=== PATIENT | female | born 1985 | race Caucasian/White ===

== ENCOUNTER 2016-10-28 12:15 | Emergency (ER) | payer SELFPAY ==
[~2016-10-28] VITALS: Ht 154.9 cm; Wt 50.0 kg
[2016-10-28 12:16] VITALS: BP 114/81; PULSE 110; RESP 18; TEMP 97.5; O2SAT 98
[2016-10-28] MEDS ORDERED: DOXY100C PO (13:52)
--- NOTE | 2016-10-28 13:52 | PD ---
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 She states that about 2 or 3 months ago she had an ultrasound that was done after she missed her period was having abdominal pain that was reportedly negative. She developed these worsening symptoms or past couple days. She's also been lightheaded with some body aches. She's had some chills. She sexually active with both male and female partners with 5 partners over the past 6 months. She states she is worried she may have contracted an STD. History Past Medical History Medical History: Denies Significant Hx Tetanus Vaccination: < 5 Years Social History Alcohol Use: No Tobacco Use: Yes (1 PPD) Allergies-Medications (Allergen,Severity, Reaction): Coded Allergies: No Known Allergies (Verified , 07/07/15) Reported Meds & Prescriptions Reported Meds & Active Scripts Active No Active Prescriptions or Reported Medications Review of Systems Except as stated in HPI: all other systems reviewed are Neg Physical Exam Narrative GENERAL: Well-appearing 31 year-old woman, no acute distress. SKIN: Focused skin assessment warm/dry. HEAD: Atraumatic. Normocephalic. CARDIOVASCULAR: Regular rate and rhythm. No murmur appreciated. RESPIRATORY: No accessory muscle use. Clear to auscultation. Breath sounds equal bilaterally. GASTROINTESTINAL: Abdomen soft, non-tender, nondistended. Hepatic and splenic margins not palpable. MUSCULOSKELETAL: No obvious deformities. No clubbing. No cyanosis. No edema. NEUROLOGICAL: Awake and alert. No obvious cranial nerve deficits. Motor grossly within normal limits. Normal speech. PSYCHIATRIC: Appropriate mood and affect; insight and judgment normal. Has pelvic: Scant thin white vaginal discharge. No obvious cervicitis. Diffuse pelvic tenderness with positive cervical motion tenderness. Data Data Last Documented VS Vital Signs Date Time Temp Pulse Resp B/P Pulse Ox O2 Delivery O2 Flow Rate FiO2 10/28/16 12:16 97.5 110 18 114/81 98 Room Air Orders Gc And Chlamydia Pcr (10/28/16 13:14) Wet Prep Profile (10/28/16 13:14) Urinalysis - C+S If Indicated (10/28/16 13:14) Ed Urine Pregnancytest Poc (10/28/16 13:14) [place] Medical Decision Making Medical Screen Exam Complete: Yes Emergency Medical Condition: Yes Differential Diagnosis Cervicitis, vaginitis, UTI, other Narrative Course Medical decision making 31 year-old woman with pelvic pain vaginal discharge chills and recent permits for sexual activity. Suspect PID. Plan empiric treatment. Diagnosis Primary Impression: PID (acute pelvic inflammatory disease) Additional Instructions: Take doxycycline as prescribed. Avoid the sun while taking doxycycline. Followup with your first assistant for routine GOVERNMENT RELATIONS ANALYST care and followup testing for other sexually transmitted infection such as HIV, hepatitis, syphilis. Any sexual partners you have should be tested and treated as well. You should not have sex until you have no symptoms, and your partners tested and treated as well. Med/Other Pt SpecificInfo: Prescription(s) given Scripts Doxycycline Hyclate 100 Mg [id number] Mg PO BID #28 CAP Ref 0 Prov:Mau Patel MD 10/28/16 Disposition: 01 DISCHARGE HOME Condition: Stable Mau Patel MD Oct 28, 2016 13:52
[2016-10-28 13:54] LABS: BACTERIA, URINE MOD /hpf; BLOOD, URINE NEG (NEG); CALCIUM OXALATE CRYSTALS,URINE FEW /hpf; GLUCOSE,URINE NEG (NEG); KETONE, URINE NEG (NEG); MUCUS URINE MOD /lpf (OCC); NITRITE,URINE NEG (NEG); SQUAMOUS EPITHELIAL CELL URINE 7 /hpf (0-5); TRANSITIONAL EPI CELLS, URINE <1 /hpf; URINE COLOR YELLOW (YELLW/STRAW)
[2016-10-28 13:56] LABS: COMMENT (UR) CULTURE INDICATED; CULTURE IF INDICATED CULTURE INDICATED
[2016-10-28] MEDS ORDERED: ONDANSETRON ODT 4 MG TAB PO ONE (14:00)
[2016-10-28] MEDS ORDERED: AZITHROMYCIN PWD FOR SUSP 1 GM PACKET PO ONE (14:00)
[2016-10-28] MEDS ORDERED: metroNIDAZOLE 500 MG TAB PO ONE (14:00)
[2016-10-28] MEDS ORDERED: LIDOCAINE HCL 1% 50 ML VIAL IM ONE (14:00)
[2016-10-28] MEDS ORDERED: cefTRIAXone 250 MG VIAL IM ONE (14:00)
[2016-10-28 16:01] LABS: CHLAMYDIA PCR DETECTED (NOT DETECT); NEISSERIA PCR NOT DETECTED (NOT DETECT)
== END 2016-10-28 14:35 | disposition home or self-care (01) ==
LOC: NEPD 12:15
DX: N73.9 Female pelvic inflammatory disease, unspecified (principal); N92.6 Irregular menstruation, unspecified; R42 Dizziness and giddiness; R68.83 Chills (without fever); R52 Pain, unspecified; F17.200 Nicotine dependence, unspecified, uncomplicated
CPT/HCPCS: 81001; 84703; 87077; 87086; 87186; 87210; 87491; 87591; 96372; 99284; J0696

== ENCOUNTER 2017-02-19 21:00 | Emergency (ER) | payer SELFPAY ==
[~2017-02-19] VITALS: Ht 154.9 cm; Wt 55.0 kg
[~2017-02-19 21:00] MED LIST: DOXY100C PO
[2017-02-19 21:03] VITALS: BP 145/85; PULSE 78; RESP 16; TEMP 97.9; O2SAT 98
[2017-02-19] MEDS ORDERED: SODIUM CHLOR 0.9% 1000 ML INJ 1,000 ML IV SCH (21:19)
--- NOTE | 2017-02-19 21:23 | PD ---
HPI Chief Complaint: Abdominal Pain Time Seen by Provider: 21:19 Travel History International Travel<30 days: No Contact w/Intl Traveler<30days: No Traveled to known affect area: No History of Present Illness HPI 31-year-old female presents to the emergency department by private transportation the care of friend for evaluation of one day of epigastric pain. Patient states symptoms began after drinking alcohol. Patient also reports 3 episodes of mucoid diarrhea. No prior history of inflammatory bowel disease or irritable bowel syndrome. Patient denies nausea or vomiting. Patient denies fever chills. No respiratory illness symptoms no sore throat no earache no cough no congestion no chest pain. Patient also denies any urinary symptoms no dysuria frequency urgency hematuria or flank pain. Last menstrual period was 2 weeks ago normal for her no vaginal discharge or vaginal bleeding. Patient reports pain is 6/10 in intensity. Patient denies dietary indiscretion well water ingestion or foreign travel. PFSH Past Medical History Narrative Medical tobacco use alcohol use: Nursing notes reviewed Diminished Hearing: No Immunizations Current: No ?: Not LMP: 01/19/17 Tubal Ligation: Yes Past Surgical History Section: Yes (X 2) Social History Alcohol Use: Yes (OCC) Tobacco Use: Yes (1 PPD) Substance Use: No Allergies-Medications (Allergen,Severity, Reaction): Coded Allergies: levofloxacin (Verified Allergy, Unknown, 02/19/17) TENDON PAIN Reported Meds & Prescriptions Reported Meds & Active Scripts Active Zofran Odt (Ondansetron Odt) 4 Mg Tab 4 Mg SL Q6HR PRN Macrobid (Nitrofurantoin Monoh/Nitrofur Macro) 100 Mg Cap 100 Mg PO BID 7 Days Review of Systems Except as stated in HPI: all other systems reviewed are Neg Physical Exam Narrative GENERAL: Well-developed well-nourished female in acute distress no respiratory distress SKIN: Warm and dry. HEAD: Normocephalic. EYES: No scleral icterus. No injection or drainage. NECK: Supple, trachea midline. No JVD or lymphadenopathy. CARDIOVASCULAR: Regular rate and rhythm without murmurs, gallops, or rubs. RESPIRATORY: Breath sounds equal bilaterally. No accessory muscle use. GASTROINTESTINAL: Abdomen soft, diffusely tender primarily epigastric periumbilical location without guarding or rebound, nondistended. MUSCULOSKELETAL: No cyanosis, or edema. BACK: Nontender without obvious deformity. No CVA tenderness. Data Data Last Documented VS Vital Signs Date Time Temp Pulse Resp B/P (MAP) Pulse Ox O2 Delivery O2 Flow Rate FiO2 02/20/17 01:20 02/19/17 21:03 97.9 78 16 98 Room Air Orders Orders Complete Blood Count With Diff (02/19/17 21:19) Comprehensive Metabolic Panel (02/19/17 21:19) Lipase (02/19/17 21:19) Urinalysis - C+S If Indicated (02/19/17 21:19) Iv Access Insert/Monitor (02/19/17 21:19) Ondansetron Inj (Zofran Inj) (02/19/17 21:30) Sodium Chlor 0.9% 1000 Ml Inj (Ns 1000 M (02/19/17 21:19) Ed Urine Pregnancytest Poc (02/19/17 21:19) Alcohol (Ethanol) (02/19/17 21:19) Drug Screen, Random Urine (02/19/17 21:19) Urine Culture (02/19/17 23:24) Nitrofurantoin Monohyd Macrocr (Macrobid (02/20/17 01:00) Ed Discharge Order (02/20/17 01:04) Labs Laboratory Tests Test 02/19/17 21:40 02/19/17 23:24 White Blood Count 7.0 TH/MM3 Red Blood Count 4.60 MIL/MM3 Hemoglobin 14.9 GM/DL Hematocrit 43.2 % Mean Corpuscular Volume 93.9 FL Mean Corpuscular Hemoglobin 32.4 PG Mean Corpuscular Hemoglobin Concent 34.5 % Red Cell Distribution Width 12.5 % Platelet Count 271 TH/MM3 Mean Platelet Volume 8.3 FL Neutrophils (%) (Auto) 60.7 % Lymphocytes (%) (Auto) 26.9 % Monocytes (%) (Auto) 10.8 % Eosinophils (%) (Auto) 1.2 % Basophils (%) (Auto) 0.4 % Neutrophils # (Auto) 4.2 TH/MM3 Lymphocytes # (Auto) 1.9 TH/MM3 Monocytes # (Auto) 0.8 TH/MM3 Eosinophils # (Auto) 0.1 TH/MM3 Basophils # (Auto) 0.0 TH/MM3 CBC Comment DIFF FINAL Differential Comment Blood Urea Nitrogen 14 MG/DL Creatinine 0.67 MG/DL Random Glucose 83 MG/DL Total Protein 7.3 GM/DL Albumin 3.6 GM/DL Calcium Level 8.8 MG/DL Alkaline Phosphatase 86 U/L Aspartate Amino Transf (AST/SGOT) 16 U/L Alanine Aminotransferase (ALT/SGPT) 20 U/L Total Bilirubin 0.8 MG/DL Sodium Level 141 MEQ/L Potassium Level 3.7 MEQ/L Chloride Level 107 MEQ/L Carbon Dioxide Level 27.7 MEQ/L Anion Gap 6 MEQ/L Estimat Glomerular Filtration Rate 104 ML/MIN Lipase 103 U/L Ethyl Alcohol Level LESS THAN 3 MG/DL Urine Color YELLOW Urine Turbidity CLEAR Urine pH 6.0 Urine Specific [place] 1.019 Urine Protein NEG mg/dL Urine Glucose (UA) NEG mg/dL Urine Ketones NEG mg/dL Urine Occult Blood NEG Urine Nitrite NEG Urine Bilirubin NEG Urine Urobilinogen LESS THAN 2.0 MG/DL Urine Leukocyte Esterase MOD Urine RBC 1 /hpf Urine WBC 11 /hpf Urine Squamous Epithelial Cells 2 /hpf Urine Bacteria FEW /hpf Microscopic Urinalysis Comment CULTURE INDICATED Urine Opiates Screen NEG Urine Barbiturates Screen NEG Urine Amphetamines Screen NEG Urine Benzodiazepines Screen NEG Urine Cocaine Screen NEG Urine Cannabinoids Screen NEG MDM Medical Decision Making Medical Screen Exam Complete: Yes Emergency Medical Condition: Yes Medical Record Reviewed: Yes Interpretation(s) CBC & BMP Diagram 02/19/17 21:40 Total Protein 7.3, Albumin 3.6, Calcium Level 8.8, Alkaline Phosphatase 86, Aspartate Amino Transf (AST/SGOT) 16, Alanine Aminotransferase (ALT/SGPT) 20, Total Bilirubin 0.8 Vital Signs Date Time Temp Pulse Resp B/P (MAP) Pulse Ox O2 Delivery O2 Flow Rate FiO2 02/19/17 21:03 97.9 78 16 145/85 (105) 98 Room Air [id number] hCG negative Differential Diagnosis Gastritis pancreatitis gastroenteritis inflammatory bowel disease UTI Narrative Course IV access obtained specimens collected and sent for resulting patient administered normal saline Advice found to be in normal range patient reports feels clinically and symptomatically improved desirous of being discharged to home Patient is aware that urinalysis is mildly abnormal and given prescription for Macrobid and encouraged to follow-up with primary care provider is informed that she will be notified if organism is not sensitive to her current antibiotic. Patient otherwise notes marked improvement after fluid hydration and is stable for outpatient management Diagnosis Primary Impression: Gastroenteritis Additional Impression: UTI (urinary tract infection) Referrals: Primary Care Physician call for appointment Patient Instructions: General Instructions Additional Instructions: Increase fluid hydration Follow-up with primary care provider Complete course of antibiotic as prescribed for urinary tract infection Takes Zofran as prescribed as needed for gastritis/gastroenteritis No work times one day May take acetaminophen/Tylenol as needed for fever 100.4F or greater or for minor pain May use [id number] Zantac 150 twice daily for 7 days Med/Other Pt SpecificInfo: Prescription(s) given Scripts Ondansetron Odt (Zofran Odt) 4 Mg Tab 4 MG SL Q6HR Y for Nausea/Vomiting, #10 TAB 0 Refills Prov: Heaven Galicia MD 02/20/17 Nitrofurantoin Monohydrate Macrocrystals (Macrobid) 100 Mg Cap 100 MG PO BID for Infection for 7 Days, #14 CAP 0 Refills Prov: Heaven Galicia MD 02/20/17 Disposition: 01 DISCHARGE HOME Condition: Stable Heaven Galicia MD Feb 19, 2017 21:23
[2017-02-19] MEDS ORDERED: ONDANSETRON HCL 4 MG/2 ML VIAL IVP ONE (21:30)
[2017-02-19 22:21] LABS: AUTOMATED NEUTROPHIL # 4.2 TH/MM3 (1.8-7.7); BASOPHIL % 0.4 % (0.0-2.0); EOSINOPHIL # 0.1 TH/MM3 (0-0.4); EOSINOPHIL % 1.2 % (0.0-4.0); HEMATOCRIT 43.2 % (35.0-46.0); HEMOGLOBIN 14.9 GM/DL (11.6-15.3); LYMPH % 26.9 % (9.0-44.0); LYMPHOCYTE # 1.9 TH/MM3 (1.0-4.8); MEAN CELL VOLUME 93.9 FL (80.0-100.0); MEAN CORPUSCULAR HEMOGLOBIN 32.4 PG (27.0-34.0); MEAN CORPUSCULAR HGB CONC 34.5 % (32.0-36.0); MEAN PLATELET VOLUME 8.3 FL (7.0-11.0); MONO % 10.8 % (0.0-8.0); MONOCYTE # 0.8 TH/MM3 (0-0.9); NEUT % 60.7 % (16.0-70.0); PLATELET COUNT 271 TH/MM3 (150-450); RED CELL DISTRIBUTION WIDTH 12.5 % (11.6-17.2)
[2017-02-19 22:51] LABS: ALBUMIN 3.6 GM/DL (3.4-5.0); ALT (GPT) 20 U/L (10-53); AST (GOT) 16 U/L (15-37); BICARBONATE 27.7 MEQ/L (21.0-32.0); BLOOD UREA NITROGEN 14 MG/DL (7-18); CALCIUM 8.8 MG/DL (8.5-10.1); CHLORIDE 107 MEQ/L (98-107); CREATININE 0.67 MG/DL (0.50-1.00); GLOMERULAR FILTRATION RATE 104 ML/MIN (>89); GLUCOSE,RANDOM 83 MG/DL (74-106); LIPASE 103 U/L (73-393); SODIUM (NA) 141 MEQ/L (136-145)
[2017-02-19 22:53] LABS: ALKALINE PHOSPHATASE 86 U/L (45-117); TOTAL BILIRUBIN ADULT 0.8 MG/DL (0.2-1.0); TOTAL PROTEIN 7.3 GM/DL (6.4-8.2)
[2017-02-20 00:04] LABS: BACTERIA, URINE FEW /hpf; BILIRUBIN, URINE NEG (NEG); BLOOD, URINE NEG (NEG); GLUCOSE,URINE NEG (NEG); KETONE, URINE NEG (NEG); NITRITE,URINE NEG (NEG); SQUAMOUS EPITHELIAL CELL URINE 2 /hpf (0-5); URINE COLOR YELLOW (YELLW/STRAW); URINE LEUKOCYTE ESTERASE MOD (NEG)
[2017-02-20] MEDS ORDERED: MACR100C2 PO (00:54)
[2017-02-20] MEDS ORDERED: ZOFR4TAB3 SL (00:54)
[2017-02-20] MEDS ORDERED: NITROFURANTOIN MONOHYD MACROCR 100 MG CAP PO ONE (01:00)
== END 2017-02-20 01:20 | disposition home or self-care (01) ==
LOC: NEPC 21:00
DX: K52.9 Noninfective gastroenteritis and colitis, unspecified (principal); N39.0 Urinary tract infection, site not specified; B96.20 Unspecified Escherichia coli [E. coli] as the cause of diseases classified elsewhere; F17.200 Nicotine dependence, unspecified, uncomplicated
CPT/HCPCS: 80053; 80307; 81001; 83690; 84703; 85025; 87077; 87086; 87186; 96374; 99284; J2405; J7030

== ENCOUNTER 2017-03-18 13:31 | Emergency (ER) | payer OTHER ==
[~2017-03-18] VITALS: Ht 154.9 cm; Wt 55.0 kg
[~2017-03-18 13:31] MED LIST changes: -DOXY100C PO; +MACR100C2 PO; +ZOFR4TAB3 SL
[2017-03-18 13:36] VITALS: BP 117/76; PULSE 102; RESP 14; TEMP 98.6; O2SAT 100
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
[2017-03-18 16:30] LABS: BLOOD, URINE NEG (NEG); GLUCOSE,URINE NEG (NEG); KETONE, URINE NEG (NEG); NITRITE,URINE POS (NEG); PH, URINE 6.5 (5.0-8.5); URINE COLOR YELLOW (YELLW/STRAW)
[2017-03-18 16:32] LABS: MUCUS URINE FEW /lpf (OCC)
[2017-03-18 16:33] LABS: BACTERIA, URINE MANY /hpf; COMMENT (UR) CULTURE INDICATED; CULTURE IF INDICATED CULTURE INDICATED
[2017-03-18 17:05] LABS: AUTOMATED NEUTROPHIL # 5.3 TH/MM3 (1.8-7.7); BASOPHIL % 0.4 % (0.0-2.0); EOSINOPHIL % 0.6 % (0.0-4.0); HEMATOCRIT 47.2 % (35.0-46.0); HEMO FLAGS DIFF FINAL; LYMPH % 21.2 % (9.0-44.0); LYMPHOCYTE # 1.6 TH/MM3 (1.0-4.8); MEAN CELL VOLUME 94.5 FL (80.0-100.0); MEAN CORPUSCULAR HEMOGLOBIN 32.8 PG (27.0-34.0); MEAN CORPUSCULAR HGB CONC 34.7 % (32.0-36.0); MONO % 7.7 % (0.0-8.0); NEUT % 70.1 % (16.0-70.0); PLATELET COUNT 344 TH/MM3 (150-450); RED CELL DISTRIBUTION WIDTH 12.7 % (11.6-17.2); WHITE BLOOD COUNT 7.6 TH/MM3 (4.0-11.0)
[2017-03-18 17:15] LABS: BICARBONATE 29.5 MEQ/L (21.0-32.0); MAGNESIUM 2.3 MG/DL (1.5-2.5)
[2017-03-18] MEDS ORDERED: cefTRIAXone INJ 1,000 MG in SODIUM CHLORIDE 0.9% INJ 100 ML IV ONE (17:15)
[2017-03-18 19:10] VITALS: BP 110/75; PULSE 98; RESP 18; O2SAT 99
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
--- NOTE | 2017-03-19 09:12 | EKG ---
Date Performed: 03/18/2017 Time Performed: 15:47:11 PTAGE: 31 years EKG: Sinus rhythm WITH SINUS ARRHYTHMIA POSSIBLE RIGHT VENTRICULAR CONDUCTION DELAY BORDERLINE ECG NO PREVIOUS TRACING DOCTOR: Curtis Johnson Interpretating Date/Time 03/19/2017 09:10:58
== END 2017-03-18 22:00 | disposition home or self-care (01) ==
LOC: NEPD 13:31
DX: S06.2X9A Diffuse traumatic brain injury with loss of consciousness of unspecified duration, initial encounter (principal); N39.0 Urinary tract infection, site not specified; B96.20 Unspecified Escherichia coli [E. coli] as the cause of diseases classified elsewhere; F17.200 Nicotine dependence, unspecified, uncomplicated; I49.8 Other specified cardiac arrhythmias; V89.2XXA Person injured in unspecified motor-vehicle accident, traffic, initial encounter
CPT/HCPCS: 70450; 70486; 70551; 80048; 81001; 83735; 84443; 84703; 85025; 87077; 87086; 87186; 93005; 96365; 99285; J0696

== ENCOUNTER 2017-03-25 06:48 | Emergency (ER) | payer SELFPAY ==
[~2017-03-25] VITALS: Ht 165.1 cm; Wt 65.0 kg
[2017-03-25 06:50] VITALS: BP 121/86; PULSE 86; RESP 16; TEMP 98.9; O2SAT 98
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
== END 2017-03-25 07:36 | disposition home or self-care (01) ==
LOC: NEPE 06:48
DX: R42 Dizziness and giddiness (principal); R93.8 Abnormal findings on diagnostic imaging of other specified body structures; F17.200 Nicotine dependence, unspecified, uncomplicated
CPT/HCPCS: 99281

== ENCOUNTER 2017-04-17 14:51 | Emergency (ER) | payer SELFPAY ==
[~2017-04-17] VITALS: Ht 152.4 cm; Wt 47.0 kg
[2017-04-17 14:52] VITALS: BP 112/70; PULSE 105; RESP 16; TEMP 97.8; O2SAT 98
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
== END 2017-04-17 16:47 | disposition left against medical advice (07) ==
LOC: NEPD 14:51
DX: Z04.1 Encounter for examination and observation following transport accident (principal); F17.200 Nicotine dependence, unspecified, uncomplicated
CPT/HCPCS: 99281

== ENCOUNTER 2017-06-03 19:15 | Emergency (ER) | payer SELFPAY ==
[~2017-06-03] VITALS: Ht 152.4 cm; Wt 48.0 kg
[2017-06-03 19:16] VITALS: BP 126/79; PULSE 96; RESP 16; TEMP 98.2; O2SAT 96
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
== END 2017-06-03 21:33 | disposition left against medical advice (07) ==
LOC: NEPD 19:15
DX: Z13.9 Encounter for screening, unspecified (principal)
CPT/HCPCS: 99281

== ENCOUNTER 2017-06-12 10:46 | Emergency (ER) | payer SELFPAY ==
[~2017-06-12] VITALS: Ht 160 cm; Wt 47.0 kg
[2017-06-12 10:48] VITALS: BP 128/71; PULSE 87; RESP 14; TEMP 97.9; O2SAT 99
[2017-06-12] MEDS ORDERED: LIDOCAINE HCL 1% 50 ML VIAL XX ONE (11:45)
[2017-06-12] MEDS ORDERED: cefTRIAXone 250 MG VIAL IM ONE (11:45)
[2017-06-12] MEDS ORDERED: IBUP1TAB7 PO (11:51)
[2017-06-12] MEDS ORDERED: METR-1 PO (11:51)
[2017-06-12] MEDS ORDERED: DOXY100C PO (11:51)
--- NOTE | 2017-06-12 11:51 | PD ---
HPI . 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 Onset 2 months. Associated with malodorous vaginal discharge. She states that the odor has just started. Pain is rated 7/10 and is getting progressively worse. Patient reports being treated for gonorrhea in October. PFSH Past Medical History Diminished Hearing: No Immunizations Current: No ?: Not LMP: JUN 11, 2017 Para: 3 Tubal Ligation: Yes Past Surgical History Section: Yes (X 2) Gynecologic Surgery: Yes ( ) Social History Alcohol Use: No Tobacco Use: Yes (1/2 PPD) Substance Use: No Allergies-Medications (Allergen,Severity, Reaction): Coded Allergies: levofloxacin (Verified Allergy, Unknown, 06/12/17) TENDON PAIN Reported Meds & Prescriptions Reported Meds & Active Scripts Active Ibuprofen 800 Mg Tab 800 Mg PO Q8H PRN Flagyl (Metronidazole) 500 Mg Tab 500 Mg PO BID 7 Days Doxycycline Hyclate 100 Mg Cap 100 Mg PO BID Review of Systems Except as stated in HPI: all other systems reviewed are Neg Physical Exam Narrative GENERAL: Awake and alert and in no acute distress. SKIN: Warm and dry. HEAD: Normocephalic/atraumatic. EYES: Pupils are equal. Extraocular movements are intact. NECK: Normal range of motion. RESPIRATORY: Nonlabored respirations. ABDOMEN: Soft and nontender :Normal female external genitalia. White discharge in the vaginal vault. Os is closed. Cervix is inflamed appearing. Positive cervical motion tenderness. Bilateral adnexal tenderness. No masses palpated. MUSCULOSKELETAL: Atraumatic. NEUROLOGICAL: Nonfocal. PSYCHIATRIC: Appropriate mood and affect. Data Data Last Documented VS Vital Signs Date Time Temp Pulse Resp B/P (MAP) Pulse Ox O2 Delivery O2 Flow Rate FiO2 06/12/17 10:48 97.9 87 14 128/71 (90) 99 Orders Orders Gc And Chlamydia Pcr (06/12/17 11:12) Wet Prep Profile (06/12/17 11:12) Ed Urine Pregnancytest Poc (06/12/17 11:12) Ceftriaxone Inj (Rocephin Inj) (06/12/17 11:45) Lidocaine 1% Inj (50 Ml) (Xylocaine 1% I (06/12/17 11:45) Lidocaine 1% Inj (Xylocaine 1% Inj) (06/12/17 12:02) Labs Laboratory Tests Test 06/12/17 11:40 Clue Cells (Wet Prep) PRESENT Vaginal Trichomonas (Wet Prep) NONE SEEN Vaginal Yeast (Wet Prep) NONE SEEN MDM Medical Decision Making Medical Screen Exam Complete: Yes Emergency Medical Condition: Yes Differential Diagnosis Differential diagnosis of pelvic pain includes but is not limited to UTI, PID, ectopic , spontaneous AB, constipation, viral illness Narrative Course Patient presents with the chief complaint of pelvic pain. She has PID on exam. She will be treated here with Rocephin and will be discharged with prescriptions for doxycycline, Flagyl and ibuprofen HCG neg. Wet prep shows clue cells. Diagnosis Primary Impression: PID (acute pelvic inflammatory disease) Additional Impression: BV (bacterial vaginosis) Patient Instructions: Bacterial Vaginosis (DC), General Instructions, Pelvic Inflammatory Disease (DC) Med/Other Pt SpecificInfo: Prescription(s) given Scripts Ibuprofen (Ibuprofen) 800 Mg Tab 800 MG PO Q8H Y for Pain/Inflammation, #60 TAB 0 Refills Prov: Keesha Schmitz MD 06/12/17 Metronidazole (Flagyl) 500 Mg Tab 500 MG PO BID for Infection for 7 Days, #14 TAB 0 Refills Prov: Keesha Schmitz MD 06/12/17 Doxycycline Hyclate (Doxycycline Hyclate) 100 Mg Cap 100 MG PO BID for Infection, #20 CAP 0 Refills Prov: Keesha Schmitz MD 06/12/17 Disposition: 01 DISCHARGE HOME Condition: Stable Keesha Schmitz MD Jun 12, 2017 11:51
[2017-06-12] MEDS ORDERED: LIDOCAINE HCL 1% 20 ML VIAL ONE (12:02)
== END 2017-06-12 13:37 | disposition home or self-care (01) ==
LOC: NEPD 10:46
DX: N76.0 Acute vaginitis (principal); B96.89 Other specified bacterial agents as the cause of diseases classified elsewhere; N73.9 Female pelvic inflammatory disease, unspecified; F17.200 Nicotine dependence, unspecified, uncomplicated; Z79.899 Other long term (current) drug therapy; Z88.8 Allergy status to other drugs, medicaments and biological substances
CPT/HCPCS: 84703; 87210; 87491; 87591; 96372; 99283; J0696

== ENCOUNTER 2017-09-26 03:06 | Emergency (ER) | payer SELFPAY ==
[~2017-09-26] VITALS: Ht 165.1 cm; Wt 47.0 kg
[~2017-09-26 03:06] MED LIST changes: +DOXY100C PO; +IBUP1TAB7 PO; -MACR100C2 PO; +METR-1 PO; -ZOFR4TAB3 SL
[2017-09-26 03:09] VITALS: BP 125/88; PULSE 80; RESP 20; TEMP 97.3; O2SAT 99
[2017-09-26] MEDS ORDERED: AMOX875T PO (03:24)
[2017-09-26] MEDS ORDERED: IBUP1TAB7 PO (03:24)
--- NOTE | 2017-09-26 03:24 | PD ---
HPI Chief Complaint: Oral / Dental Pain or Problem Time Seen by Provider: 03:14 Travel History International Travel<30 days: No Contact w/Intl Traveler<30days: No Traveled to known affect area: No History of Present Illness HPI Patient is a 32-year-old female presenting to emerge department evaluation of 1 day of right lower tooth pain. Patient states is throbbing, her pain is a 7 out of 10. She took 2 Tylenol 500 mg tablets with no improvement of her symptoms. She denies any fevers, headache, dysphagia, swelling. Symptom onset was sudden, symptoms are moderate in nature. There are no alleviating factors. PFS Past Medical History Medical History: Denies Significant Hx Diminished Hearing: No Immunizations Current: Yes Tetanus Vaccination: Unknown Influenza Vaccination: No ?: Not Para: 3 Tubal Ligation: Yes Past Surgical History Section: Yes (X 2) Gynecologic Surgery: Yes ( ) Social History Alcohol Use: No Tobacco Use: Yes (1/2 PPD) Substance Use: No Allergies-Medications (Allergen,Severity, Reaction): Coded Allergies: levofloxacin (Verified Allergy, Unknown, 09/26/17) TENDON PAIN Reported Meds & Prescriptions Reported Meds & Active Scripts Active Review of Systems Except as stated in HPI: all other systems reviewed are Neg HENT: Positive: Dental Difficulties Physical Exam Narrative GENERAL: Well-developed, well-nourished, alert female. Presenting in no acute distress. SKIN: Warm and dry. HEAD: Normocephalic. EYES: No scleral icterus. No injection or drainage. NECK: Supple, trachea midline. No JVD or lymphadenopathy MOUTH: Mucous membranes moist, no lesions, tongue and gums appear normal. Patient has significant dental caries in the right upper molars, the right lower molars have dental caries as well. No obvious signs of abscess, no erythema or edema to gums.. CARDIOVASCULAR: Regular rate and rhythm without murmurs, gallops, or rubs. RESPIRATORY: Breath sounds equal bilaterally. No accessory muscle use. GASTROINTESTINAL: Abdomen soft, non-tender, nondistended. MUSCULOSKELETAL: No cyanosis, or edema. BACK: Nontender without obvious deformity. No CVA tenderness. Data Data Last Documented VS Vital Signs Date Time Temp Pulse Resp B/P (MAP) Pulse Ox O2 Delivery O2 Flow Rate FiO2 09/26/17 03:09 97.3 80 20 125/88 (100) 99 Room Air Orders Orders Ibuprofen (Motrin) (09/26/17 03:30) Ed Discharge Order (09/26/17 03:20) MDM Medical Decision Making Medical Screen Exam Complete: Yes Emergency Medical Condition: Yes Interpretation(s) Vital Signs Date Time Temp Pulse Resp B/P (MAP) Pulse Ox O2 Delivery O2 Flow Rate FiO2 09/26/17 03:09 97.3 80 20 125/88 (100) 99 Room Air Differential Diagnosis Dentalgia versus dental abscess versus dental caries versus other Narrative Course Patient is well-appearing 32-year-old female presenting for evaluation of 1 day of dental pain. There is no obvious signs of infection/abscess however patient does have significant dental caries. She will be started on amoxicillin. She was advised that ibuprofen as needed and as directed for pain. She was further advised to follow-up with a dentist for further evaluation and management. She was given a list of local dental clinics in the area she has no insurance coverage at this time. Patient verbalized understanding of discharge instructions. Patient stable for discharge. Diagnosis Primary Impression: Dentalgia Additional Impression: Dental caries Referrals: Dentist 2 days Patient Instructions: General Instructions, Toothache (ED) Additional Instructions: Follow-up with a dentist Take medications as directed Return to emergency department for any new or worsening symptoms Med/Other Pt SpecificInfo: Prescription(s) given Scripts Ibuprofen (Ibuprofen) 800 Mg Tab 800 MG PO Q6HR Y for PAIN, #40 TAB 0 Refills Prov: Afia Narvaez 09/26/17 Amoxicillin (Amoxicillin) 875 Mg Tab 875 MG PO BID for Infection for 10 Days, #20 TAB 0 Refills Prov: Afia Narvaez 09/26/17 Disposition: 01 DISCHARGE HOME Condition: Stable Afia Narvaez September 26, 2017 03:24
[2017-09-26] MEDS ORDERED: IBUPROFEN 800 MG TAB PO ONE (03:30)
== END 2017-09-26 03:26 | disposition home or self-care (01) ==
LOC: NEPD 03:06
DX: K08.89 Other specified disorders of teeth and supporting structures (principal); K02.9 Dental caries, unspecified; F17.200 Nicotine dependence, unspecified, uncomplicated
CPT/HCPCS: 99283